=== PATIENT | female | born 1940 | race Caucasian/White ===

== ENCOUNTER 2020-05-06 01:24 | Inpatient (IN) | payer MEDICARE, OTHER ==
[~2020-05-06] VITALS: Ht 154.9 cm; Wt 45.8 kg
[2020-05-06] MEDS ORDERED: TYLENOL EXTRA500 MG PO (04:40)
[2020-05-06] MEDS ORDERED: ALBUTEROL1.25 MG/3 NEB (04:41)
[2020-05-06] MEDS ORDERED: ASPIRIN81 MG PO (04:42)
[2020-05-06] MEDS ORDERED: NORVASC2.5 MG PO (04:42)
[2020-05-06] MEDS ORDERED: DEPAKOTE250 MG PO (04:43)
[2020-05-06] MEDS ORDERED: FERROUS SULFAT325 MG PO (04:44)
[2020-05-06] MEDS ORDERED: BREO ELLIPTA 11 EACH INH (04:45)
[2020-05-06] MEDS ORDERED: FOLIC ACID 1 MG1 MG PO (04:46)
[2020-05-06] MEDS ORDERED: ATIVAN0.5 MG PO (04:46)
[2020-05-06] MEDS ORDERED: MILK OF MAGNESI30 ML PO (04:47)
[2020-05-06] MEDS ORDERED: PROTONIX 40 MG40 M1 PO (04:48)
[2020-05-06 06:48] LABS: HEMOGLOBIN 13.9 gm/dl (12.3-15.3); RED BLOOD COUNT 4.35 M/UL (4.00-5.10); WHITE BLOOD COUNT 19.5 K/UL (4.5-11.0)
[2020-05-06 07:19] LABS: BUN/CREATININE RATIO 43 (0-10)
--- NOTE | 2020-05-06 07:35 | NUR ---
CALLED [facility] OF POTASSIUM 2.9 AND LACTIC ACID OF 43.[address] HAY ORDERED POTASSIUM PROTOCOL AND MAGNESIUM LEVEL LAB.
[2020-05-06] MEDS ORDERED: HYDROCODON-ACE1 EAC4 PO (14:13)
[2020-05-06] MEDS ORDERED: SEROQUEL25 MG PO (14:16)
[2020-05-06] MEDS ORDERED: SEROQUEL50 MG PO (14:17)
[2020-05-06 15:20] LABS: BUN/CREATININE RATIO 54 (0-10)
[2020-05-07 05:44] LABS: RED BLOOD COUNT 3.45 M/UL (4.00-5.10); WHITE BLOOD COUNT 25.9 K/UL (4.5-11.0)
[2020-05-07 05:45] LABS: HEMOGLOBIN 10.9 gm/dl (12.3-15.3)
[2020-05-07 05:53] LABS: BUN/CREATININE RATIO 76 (0-10)
[2020-05-08 05:32] LABS: HEMOGLOBIN 9.5 gm/dl (12.3-15.3)
[2020-05-08 05:36] LABS: RED BLOOD COUNT 2.99 M/UL (4.00-5.10); WHITE BLOOD COUNT 16.8 K/UL (4.5-11.0)
[2020-05-08 05:58] LABS: BUN/CREATININE RATIO 58 (0-10)
[2020-05-09 04:34] LABS: HEMOGLOBIN 10.5 gm/dl (12.3-15.3); RED BLOOD COUNT 3.32 M/UL (4.00-5.10); WHITE BLOOD COUNT 16.9 K/UL (4.5-11.0)
[2020-05-09 04:54] LABS: BUN/CREATININE RATIO 41 (0-10)
[2020-05-10 05:35] LABS: HEMOGLOBIN 11.1 gm/dl (12.3-15.3); RED BLOOD COUNT 3.55 M/UL (4.00-5.10)
[2020-05-10 06:03] LABS: BUN/CREATININE RATIO 29 (0-10)
[2020-05-10 13:10] LABS: ADENOVIRUS F 40/41 Not Detected (Not Detected); ASTROVIRUS Not Detected (Not Detected); C DIFFICILE TOXIN A/B Not Detected (Not Detected); CAMPYLOBACTER Not Detected (Not Detected); CRYPTOSPORIDIUM Not Detected (Not Detected); CYCLOSPORA CAYETANENSIS Not Detected (Not Detected); ENTAMOEBA HISTOLYTICA Not Detected (Not Detected); ENTEROAGGREGATIVE E COLI Not Detected (Not Detected); ENTEROPATHOGENIC E COLI Not Detected (Not Detected); ENTEROTOXIGENIC E COLI Not Detected (Not Detected); GIARDIA LAMBLIA Not Detected (Not Detected); NOROVIRUS GI/GII Not Detected (Not Detected); PLESIOMONAS SHIGELLOIDES Not Detected (Not Detected); ROTAVIRUS A Not Detected (Not Detected); SALMONELLA Not Detected (Not Detected); SAPOVIRUS Not Detected (Not Detected); SHIGA-TOXIN-PRODUCING E COLI Not Detected (Not Detected); SHIGELLA/ENTEROINVASIVE E COLI Not Detected (Not Detected); VIBRIO Not Detected (Not Detected); VIBRIO CHOLERAE Not Detected (Not Detected); YERSINIA ENTEROCOLITICA Not Detected (Not Detected)
[2020-05-11 05:33] LABS: HEMOGLOBIN 10.4 gm/dl (12.3-15.3); RED BLOOD COUNT 3.3 M/UL (4.00-5.10); WHITE BLOOD COUNT 12.2 K/UL (4.5-11.0)
[2020-05-11 06:20] LABS: BUN/CREATININE RATIO 24 (0-10)
[2020-05-12 05:56] LABS: HEMOGLOBIN 10.2 gm/dl (12.3-15.3); RED BLOOD COUNT 3.38 M/UL (4.00-5.10); WHITE BLOOD COUNT 10.6 K/UL (4.5-11.0)
[2020-05-12 05:57] LABS: BUN/CREATININE RATIO 30 (0-10)
[2020-05-13 06:44] LABS: HEMOGLOBIN 9.4 gm/dl (12.3-15.3); RED BLOOD COUNT 3.13 M/UL (4.00-5.10); WHITE BLOOD COUNT 10.8 K/UL (4.5-11.0)
[2020-05-13 07:25] LABS: BUN/CREATININE RATIO 44 (0-10)
[2020-05-14 07:02] LABS: HEMOGLOBIN 9.5 gm/dl (12.3-15.3); RED BLOOD COUNT 3.03 M/UL (4.00-5.10); WHITE BLOOD COUNT 12.1 K/UL (4.5-11.0)
[2020-05-14 07:20] LABS: BUN/CREATININE RATIO 48 (0-10)
[2020-05-16 03:11] LABS: HEMOGLOBIN 9.8 gm/dl (12.3-15.3); RED BLOOD COUNT 3.12 M/UL (4.00-5.10)
[2020-05-16 03:21] LABS: WHITE BLOOD COUNT 16.3 K/UL (4.5-11.0)
[2020-05-16 03:32] LABS: BUN/CREATININE RATIO 43 (0-10)
[2020-05-17 08:04] LABS: HEMOGLOBIN 8.9 gm/dl (12.3-15.3); RED BLOOD COUNT 2.8 M/UL (4.00-5.10); WHITE BLOOD COUNT 13.5 K/UL (4.5-11.0)
[2020-05-17 08:26] LABS: BUN/CREATININE RATIO 41 (0-10)
[2020-05-18 04:36] LABS: HEMOGLOBIN 9.1 gm/dl (12.3-15.3); RED BLOOD COUNT 2.91 M/UL (4.00-5.10); WHITE BLOOD COUNT 13.3 K/UL (4.5-11.0)
[2020-05-18 04:55] LABS: BUN/CREATININE RATIO 42 (0-10)
--- NOTE | 2020-05-18 17:21 | NUR ---
DOBHOFF REMOVED, CATH INTACT PATIENT TOLERATED PROCEDURE WELL
[2020-05-19 06:23] LABS: HEMOGLOBIN 9.1 gm/dl (12.3-15.3); RED BLOOD COUNT 2.91 M/UL (4.00-5.10); WHITE BLOOD COUNT 11.5 K/UL (4.5-11.0)
[2020-05-19 07:01] LABS: BUN/CREATININE RATIO 31 (0-10)
[2020-05-19] MEDS ORDERED: LEVOFLOXACIN500 MG PO (12:48)
--- NOTE | 2020-05-19 21:53 | NUR ---
[facility] BEHIND ON TRANSPORT NOTIFIED [facility] AND THE C APPROVED FOR THEM TO COME TRANSFER PATIENT BACK TO [facility].
== END 2020-05-19 23:50 | DRG 870 ==
LOC: CCU 04:13 → MED SURG 4 04:13 → CCU 06:13 → MED SURG 4 05-12 14:39
PROVIDERS: Internal Medicine; Internal Medicine Pulmonary Disease; ADMIT Internal Medicine
PROC: 3E033XZ Introduction of Vasopressor into Peripheral Vein, Percutaneous Approach (ICD-10-PCS; principal; 2020-05-06)
PROC: 5A1955Z Respiratory Ventilation, Greater than 96 Consecutive Hours (ICD-10-PCS; 2020-05-06)
PROC: 0BH17EZ Insertion of Endotracheal Airway into Trachea, Via Natural or Artificial Opening (ICD-10-PCS; 2020-05-06)
DX: A41.01 Sepsis due to Methicillin susceptible Staphylococcus aureus (principal); R65.21 Severe sepsis with septic shock; J96.01 Acute respiratory failure with hypoxia; G93.41 Metabolic encephalopathy; J69.0 Pneumonitis due to inhalation of food and vomit; E43 Unspecified severe protein-calorie malnutrition; I21.A1 Myocardial infarction type 2; E87.0 Hyperosmolality and hypernatremia; Z20.822 Contact with and (suspected) exposure to COVID-19; N39.0 Urinary tract infection, site not specified; Z66 Do not resuscitate; R13.12 Dysphagia, oropharyngeal phase; F41.1 Generalized anxiety disorder; F31.9 Bipolar disorder, unspecified; I10 Essential (primary) hypertension; J44.9 Chronic obstructive pulmonary disease, unspecified; E87.6 Hypokalemia; G30.9 Alzheimer's disease, unspecified; K29.70 Gastritis, unspecified, without bleeding; E83.39 Other disorders of phosphorus metabolism; E83.42 Hypomagnesemia; D69.6 Thrombocytopenia, unspecified; F02.80 Dementia in other diseases classified elsewhere, unspecified severity, without behavioral disturbance, psychotic disturbance, mood disturbance, and anxiety; K21.9 Gastro-esophageal reflux disease without esophagitis; Z88.2 Allergy status to sulfonamides; Z79.82 Long term (current) use of aspirin; Z86.73 Personal history of transient ischemic attack (TIA), and cerebral infarction without residual deficits; K52.9 Noninfective gastroenteritis and colitis, unspecified; D50.9 Iron deficiency anemia, unspecified
CPT/HCPCS: ECHO; 36415; 36600; 71045; 74018; 74230; 80048; 80053; 80202; 82140; 82150; 82550; 82553; 82803; 83605; 83615; 83690; 83735; 83880; 84100; 84132; 84439; 84443; 84484; 85025; 85027; 85384; 85610; 85730; 86140; 87040; 87070; 87077; 87081; 87186; 87205; 87507; 92610; 92611-GN; 93005; 93306; 94002; 94003; 94640; 94664; 94760; 97162; 97167; A6212; C9113; J1335; J1650; J1720; J1940; J1956; J2185; J2250; J3370; J3430; J3475; J3480; J7030; J7050; J7070; P9047; U0002